=== PATIENT | female | born 1975 | race Caucasian/White ===

== ENCOUNTER 2018-03-06 14:09 | Outpatient (CLI) | payer OTHER | END 2018-03-06 14:13 | disposition home or self-care (01) | LOC: RAD 14:09 | DX: M25.571 Pain in right ankle and joints of right foot (principal); S93.431A Sprain of tibiofibular ligament of right ankle, initial encounter; E01.2 Iodine-deficiency related (endemic) goiter, unspecified; E04.1 Nontoxic single thyroid nodule ==

== ENCOUNTER 2018-04-23 13:14 | Outpatient (CLI) | payer OTHER | END 2018-04-23 13:27 | disposition home or self-care (01) | LOC: SONOGRAMA 13:14 | DX: M25.571 Pain in right ankle and joints of right foot (principal) ==

== ENCOUNTER 2019-05-03 15:30 | Outpatient (CLI) | payer OTHER | END 2019-05-03 17:00 | disposition home or self-care (01) | LOC: TOM 15:30 | DX: R10.84 Generalized abdominal pain (principal); K59.09 Other constipation ==

== ENCOUNTER 2019-06-24 08:30 | Inpatient (IN) | payer OTHER ==
[~2019-06-24] VITALS: Ht 13.7 cm; Wt 68.0 kg
[2019-06-24] MEDS ORDERED: COZAAR100 MG PO (09:46)
[2019-07-06] MEDS ORDERED: PERCOCET 5-3251 EACH PO (09:42)
[2019-07-06] MEDS ORDERED: KETO10TA2 PO (09:42)
[2019-07-06] MEDS ORDERED: COLACE100 MG PO (09:43)
[2019-07-06] MEDS ORDERED: DERMOPLAST PAIN78 GM TOP (09:45)
[2019-07-06] MEDS ORDERED: SIMETHICONE125 M1 PO (09:46)
== END 2019-07-06 10:19 | DRG 743 ==
LOC: SURG-SUITE 07-04 05:40 → O/R 07-04 05:40 → SURG 07-04 07:00 → SURG-SUITE 07-04 11:40
PROVIDERS: ADMIT Obstetrics & Gynecology
PROC: 0US00ZZ Reposition Right Ovary, Open Approach (ICD-10-PCS; 2019-07-04)
PROC: 0UB00ZZ Excision of Right Ovary, Open Approach (ICD-10-PCS; 2019-07-04)
PROC: 0UT90ZZ Resection of Uterus, Open Approach (ICD-10-PCS; principal; 2019-07-04 07:00)
PROC: 0USG0ZZ Reposition Vagina, Open Approach (ICD-10-PCS; 2019-07-04 07:00)
DX: D25.1 Intramural leiomyoma of uterus (principal); D25.0 Submucous leiomyoma of uterus; N72 Inflammatory disease of cervix uteri; N83.11 Corpus luteum cyst of right ovary; N92.0 Excessive and frequent menstruation with regular cycle

== ENCOUNTER → 2019-09-13 | Outpatient (CLI) | payer OTHER ==
[~2019-09-13] MED LIST: COLACE100 MG PO; COZAAR100 MG PO; DERMOPLAST PAIN78 GM TOP; KETO10TA2 PO; PERCOCET 5-3251 EACH PO; SIMETHICONE125 M1 PO
== END | disposition home or self-care (01) ==
LOC: RAD 15:51
DX: J45.998 Other asthma (principal)

== ENCOUNTER 2020-09-15 08:31 | Outpatient (CLI) | payer OTHER | END 2020-09-15 08:38 | disposition HB | LOC: SONOGRAMA 08:31 | DX: N83.291 Other ovarian cyst, right side (principal); K76.0 Fatty (change of) liver, not elsewhere classified ==

== ENCOUNTER 2021-02-09 11:53 | Outpatient (CLI) | payer OTHER | END 2021-02-09 15:32 | disposition home or self-care (01) | LOC: RAD 11:53 | PROVIDERS: ATTEND Internal Medicine Cardiovascular Disease | DX: M41.9 Scoliosis, unspecified (principal) ==

== ENCOUNTER 2021-08-20 14:42 | Emergency (ER) | payer OTHER ==
[~2021-08-20] VITALS: Ht 162.6 cm; Wt 70.3 kg
[2021-08-20] MEDS ORDERED: ADVIL (16:00)
== END 2021-08-20 18:05 ==
LOC: ER 14:42
DX: J06.9 Acute upper respiratory infection, unspecified (principal); I10 Essential (primary) hypertension; Z20.822 Contact with and (suspected) exposure to COVID-19

== ENCOUNTER 2024-10-07 13:01 | Outpatient (CLI) | payer OTHER ==
[~2024-10-07 13:01] MED LIST changes: +ADVIL
== END 2024-10-07 13:12 | disposition home or self-care (01) ==
LOC: SONOGRAMA 13:01
PROVIDERS: ATTEND Obstetrics & Gynecology
DX: D34 Benign neoplasm of thyroid gland (principal)

== ENCOUNTER 2024-11-25 09:36 | Outpatient (CLI) | payer OTHER | END 2024-11-25 09:41 | disposition home or self-care (01) | LOC: SONOGRAMA 09:36 | PROVIDERS: ATTEND Surgery | DX: E04.2 Nontoxic multinodular goiter (principal) ==

== ENCOUNTER 2025-05-30 14:34 | Outpatient (CLI) | payer OTHER | END 2025-05-30 14:47 | disposition home or self-care (01) | LOC: MRI 14:34 | DX: M54.17 Radiculopathy, lumbosacral region (principal); M54.50 Low back pain, unspecified | CPT/HCPCS: 72148 ==